=== PATIENT | female | born 1975 | race Caucasian/White ===

== ENCOUNTER 2021-07-04 22:58 | Emergency (ER) | payer SELFPAY ==
[2021-07-04 23:02] VITALS: BP 156/98; PULSE 88; RESP 18; TEMP 36.6; O2SAT 98
--- NOTE | 2021-07-04 23:06 | ECG_ITS ---
Measurements Intervals [place] Rate: 78 P: 26 CT: 167 QRS: -1 QRSD: 78 T: 18 QT: 389 QTc: 445 Interpretive Statements SINUS RHYTHM DELAYED PRECORDIAL R/S TRANSITION LOW QRS VOLTAGE IN PRECORDIAL LEADS VOLTAGE CRITERIA FOR LVH BASELINE ARTIFACT- V6 BORDERLINE ECG Electronically Signed On 07-05-2021 6:44:14 EQUIPMENT SUPERINTENDENT by Gennaro Stanton D.O.
[2021-07-04 23:48] LABS: Basophils Absolute Auto 0.1 K/mm3 (0.0-0.1); Basophils Percent Auto 0.6 % (0.2-1.2); Eosinophils Absolute Auto 0.3 K/mm3 (0-0.3); Eosinophils Percent Auto 2.9 % (0-4.4); Hematocrit 37.1 % (37.0-47.0); Hemoglobin 12.1 g/dL (12.0-15.0); Immature Granulocyte Absolute 0.07 K/mm3 (0.00-0.031); Immature Granulocyte Percent A 0.8 % (0-0.5); Lymphocytes Absolute Auto 2.75 K/mm3 (0.9-3.2); Lymphocytes Percent Auto 30.9 % (18.3-44.2); Mean Corpuscular HGB Conc 32.6 g/dl (32-36); Mean Corpuscular Hemoglobin 27.9 pg (26-34); Mean Corpuscular Volume 85.5 fl (80-100); Mean Platelet Volume 9.1 fl (7.4-10.4); Monocytes Absolute Auto 0.6 K/mm3 (0.1-0.6); Monocytes Percent Auto 6.4 % (2.6-8.5); Neutrophils Absolute Auto 5.2 K/mm3 (1.3-6.7); Neutrophils Percent Auto 58.4 % (45.5-73.1); Platelet Count Result 302 k/mm3 (150-375); Red Blood Count 4.34 M/mm3 (4.2-5.4); Red Cell Distribution Width 14.7 % (11.5-14.5); White Blood Count 8.9 K/mm3 (4.5-10.0)
[2021-07-04 23:53] VITALS: BP 142/95; PULSE 72; RESP 14; O2SAT 99
[2021-07-05] LABS: Alanine Aminotransferase 47 U/L (4-35); Albumin Level 4.4 g/dL (3.5-5.1); Alkaline Phosphatase 117 U/L (38-126); Anion Gap 6 mmol/L (8-16); Aspartate Amino Transferase 59 U/L (14-36); Bilirubin,Total 0.5 mg/dL (0.2-1.3); Blood Urea Nitrogen 13 mg/dL (7-17); Carbon Dioxide 30 mmol/L (22-30); Chloride 102 mmol/L (98-107); Estimated CRCL calculation 120 ml/min; Estimated Glomerular Filt Rate > 60; Glucose 135 mg/dL (65-110); Lipase 104 U/L (23-300); Potassium 3.8 mmol/L (3.4-5.0); Sodium 138 mmol/L (137-145)
[2021-07-05 00:01] LABS: INR 0.8; Prothrombin Time 11.5 Seconds (11.1-14.7)
[2021-07-05 00:02] LABS: Partial Thromboplastin Time 24.9 SECONDS (22.3-36.8)
[2021-07-05 00:10] LABS: Troponin I < 0.012 ng/mL (0.000-0.034)
[2021-07-05 00:57] LABS: Magnesium 1.8 mg/dL (1.6-2.3)
[2021-07-05 01:04] VITALS: BP 112/86; PULSE 71; RESP 15; O2SAT 97
[2021-07-05 01:40] LABS: Free T4 Free Thyroxine 1.14 ng/mL (0.78-2.19)
--- NOTE | 2021-07-05 01:41 | ED.ARRPALP ---
HPI - Arrhythmia/Palpitations General Chief Complaint: Arrhythmia/Palpitations Stated Complaint: palpitations Time Seen by Provider: 07/05/21 00:18 Source: patient Mode of arrival: ambulatory Limitations: no limitations History of Present Illness HPI narrative: 46-year-old female Here because of palpitations Patient notes several episodes of feeling like her heart was pounding commencing shortly after she got home from work this afternoon Nothing seems to trigger the episodes No prior history, no heart history, no history of thyroid issues or of hypoglycemia She does not use energy drinks takes 1 cup of coffee in the morning and no drugs Not associated with shortness of breath nausea diaphoresis With a strong thumbs feel uncomfortable but other than that there is no chest pain Related Data Allergies Allergy/AdvReac Type Severity Reaction Status Date / Time cefaclor Allergy Mild Swelling Verified 07/05/21 00:08 of Lip/Tongue/Throat Penicillins Allergy Mild Swelling Verified 07/05/21 00:08 of Lip/Tongue/Throat Review of Systems Review of Systems: All systems reviewed & are unremarkable except as noted in HPI and below Constitutional: Constitutional: Reports no additional constitutional complaints, Denies chills, Denies fever(s) and Denies headache(s) Eyes: Eyes: Reports no additional eye complaints and Denies change in vision ENT: Denies headache(s) and Denies sore throat Cardiovascular: Cardiovascular: Reports chest pain, Reports rapid heart rate and Denies dyspnea Respiratory: Respiratory: Denies cough and Denies dyspnea Gastrointestinal: Gastrointestinal: Denies abdominal pain, Denies diarrhea and Denies vomiting Genitourinary: Genitourinary: Denies urinary frequency and Denies dysuria Musculoskeletal: Musculoskeletal: Denies deformity, Denies arthralgias, Denies joint swelling and Denies numbness Integumentary/Breasts: Skin/Breast: Denies rash and Denies wounds Neurologic: Denies headache(s), Denies focal weakness and Denies numbness Psychiatric: Psychiatric: Reports no additional psychiatric complaints Endocrine: Endocrine: Reports no additional endocrine complaints Hematologic/Lymphatic: Hematologic/Lymphatic: Reports no additional hematologic/lymphatic complaints Allergic/Immunologic: Allergic/Immunologic: Reports no additional allergic/immunologic complaints Exam Const: General: cooperative, no acute distress and alert Nutritional Appearance: obese Orientation/consciousness: patient oriented x3 (alert) HENMT: Head: normal to inspection, normocephalic and atraumatic Ears: external ears normal General nose exam: no epistaxis Eyes: Conjunctivae: conjunctivae normal EOM: EOMs intact bilaterally Neck: Neck: normal visual inspection, supple and no JVD Resp: Effort & Inspection: normal respiratory effort and not labored Auscultation: clear to auscultation bilaterally, no rales, no rhonchi, no wheezes and other (BS =) Cardio: Rate: regular rate Rhythm: regular rhythm Heart sounds: no murmurs GI: GI Palp: Yes Soft to palpation and No Tenderness to palpation present (GI) Skin: General skin exam: normal color and no rashes or lesions noted Neuro: General: patient oriented x3 (alert) and moves all extremities Speech: normal speech Extrem: General: normal to inspection and no pedal edema Psych: Affect: normal affect Course Course Emergency Course: I did see 1 single PVC on the monitor while I was in the room Vital Signs Vital signs: Vital Signs Temperature 36.6 C 07/04/21 23:02 Pulse Rate 88 07/04/21 23:02 Respiratory Rate 18 07/04/21 23:02 Blood Pressure 156/98 H 07/04/21 23:02 Pulse Oximetry 98 07/04/21 23:02 Temperature 36.6 C 07/04/21 23:02 Pulse Rate 71 07/05/21 01:04 Respiratory Rate 15 07/05/21 01:04 Blood Pressure 112/86 07/05/21 01:04 Pulse Oximetry 97 07/05/21 01:04 MDM - Arrhythmia/Palpitations Lab Data
[2021-07-05 02:04] VITALS: BP 115/78; PULSE 71; RESP 16; O2SAT 98
== END 2021-07-05 02:04 | disposition home or self-care (01) ==
PROVIDERS: Emergency Medicine; Emergency Provider Emergency Medicine; PCP Family Medicine
DX: R00.2 Palpitations (principal); I49.3 Ventricular premature depolarization
CPT/HCPCS: 36415; 80053; 83690; 83735; 84439; 84443; 84484; 85025; 85610; 85730; 93005; 99284

== ENCOUNTER 2023-01-24 18:36 | Emergency (ER) | payer OTHER, SELFPAY ==
[2023-01-24] VITALS (15 sets, daily range): BP systolic 106–142; BP diastolic 54–68; PULSE 75–91; RESP 15–24; TEMP 36.5; O2SAT 95–99
--- NOTE | ~2023-01-24 | CT_ITS ---
EXAMINATION: CT abdomen pelvis w con DATE: 01/24/2023 20:09 INDICATION: LLQ abdominal pain TECHNIQUE: Computed tomography (CT) of the abdomen and pelvis was performed with 100 mL Omnipaque-350 intravenous contrast. Automated exposure control and iterative reconstruction technique were employe d. The dose-length product was 1610.67 mGy-cm. COMPARISON: 02/28/2019. FINDINGS: Lower thorax: Multiple stable pulmonary nodules. Liver: Normal. Biliary/Gallbladder: Gallbladder is absent. No bile duct dilation. Pancreas: No mass or duct dilation. Spleen: Normal. Adrenals:No mass. Kidneys: No mass, stone, or hydronephrosis. Dropped clips adjacent to the right kidney. GI tract: No small or large bowel dilation. Normal appendix. Mild diverticulosis without diverticulit is. Mesentery/Peritoneum: No ascites, mass, or free air. Retroperitoneum: No mass. Atherosclerotic abdominal aortic and/or arterial calcifications. Pelvis: 14.3 cm circumscribed simple left adnexal cyst, likely representing from the left ovary, exte nding into the lower abdomen.. Soft Tissues: Soft tissues and body wall unremarkable. Bones: No acute osseous finding. IMPRESSION: Hepatomegaly. Persistent large left ovarian cyst, now measuring 14.3 cm, which could be a source of l ower quadrant pain, consider gynecology referral for potential resection based on size and possible a ssociated symptoms. Otherwise, no acute abdominopelvic process detected. Reviewed, dictated and finalized at location [facility]. IMPRESSION: Hepatomegaly. Persistent large left ovarian cyst, now measuring 14.3 cm, which could be a source of lower quadrant pain, consider gynecology referral for pote ntial resection based on size and possible associated symptoms. Otherwise, no a cute abdominopelvic process detected.
--- NOTE | 2023-01-24 19:24 | ED.GENADULT ---
HPI - General Adult General Chief complaint: Abdominal Pain Stated complaint: Abdominal pain and chills Time Seen by Provider: 01/24/23 19:17 History of Present Illness HPI narrative: Patient 47-year-old female who presents the emergency department with chief complaint of abdominal pain. The patient reports that earlier today she started having severe cramping in the left side of her abdomen the patient states it was sharp but then became a cramping-like sensation patient states the pain has improved since she is arrived to the emergency department reports she had 2 bowel movements today and reports that she had some nausea. The patient denies fever denies dysuria reports that she has had a cholecystectomy and reports that she has had C-sections in the past. Patient reports no diarrhea reports no blood in her stool Related Data Allergies Allergy/AdvReac Type Severity Reaction Status Date / Time cefaclor Allergy Mild Swelling Verified 07/05/21 00:08 of Lip/Tongue/Throat Penicillins Allergy Mild Swelling Verified 07/05/21 00:08 of Lip/Tongue/Throat Review of Systems Review of Systems: A 10 system review of systems was completed on the patient and is negative except for what is stated in the HPI. Nursing and ancillary documentation was reviewed. Exam Narrative: GENERAL: Well-appearing, well-nourished, and in no acute distress. HEAD: Normocephalic, atraumatic. EYES: PERRLA and EOMI. ENT: Nares clear, no rhinorrhea or epistaxis. Mucous membranes moist. NECK: Supple. CHEST: Clear to auscultation. No respiratory distress. HEART: Regular rate and rhythm. No murmur heard. Normal peripheral pulses. ABDOMEN: Soft, tenderness to palpation in the left upper quadrant and left lower quadrant, nondistended, normal active bowel sounds. EXTREMITIES: Normal range of motion. No edema. SKIN: Warm, dry, no rash. NEURO: No focal deficits. Alert and oriented x3. PSYCH: Normal mood and affect. Course Vital Signs Vital signs: Vital Signs Temperature 36.5 C 01/24/23 18:39 Pulse Rate 91 01/24/23 18:39 Respiratory Rate 18 01/24/23 18:39 Blood Pressure 142/68 H 01/24/23 18:39 Pulse Oximetry 98 01/24/23 18:39 Oxygen Delivery Room Air 01/24/23 18:39 Temperature 36.5 C 01/24/23 18:39 Pulse Rate 77 01/24/23 20:39 Respiratory Rate 18 01/24/23 20:39 Blood Pressure 106/61 01/24/23 20:39 Pulse Oximetry 98 01/24/23 20:39 Oxygen Delivery Room Air 01/24/23 18:39 Medical Decision Making Vital Signs Vital Signs: Vital Signs Temperature 36.5 C 01/24/23 18:39 Pulse Rate 91 01/24/23 18:39 Respiratory Rate 18 01/24/23 18:39 Blood Pressure 142/68 H 01/24/23 18:39 Pulse Oximetry 98 01/24/23 18:39 Oxygen Delivery Room Air 01/24/23 18:39 Temperature 36.5 C 01/24/23 18:39 Pulse Rate 77 01/24/23 20:39 Respiratory Rate 18 01/24/23 20:39 Blood Pressure 106/61 01/24/23 20:39 Pulse Oximetry 98 01/24/23 20:39 Oxygen Delivery Room Air 01/24/23 18:39 Lab Data 01/24/23 19:12 01/24/23 19:12 Labs: Lab Results 01/24/23 Range/Units 19:12 WBC 16.6 H (4.5-10.0) K/mm3 RBC 4.30 (4.2-5.4) M/mm3 Hgb 11.2 L (12.0-15.0) g/dL Hct 35.7 L (37.0-47.0) % MCV 83.0 (80-100) fl MCH 26.0 (26-34) pg MCHC 31.4 L (32-36) g/dl RDW 15.8 H (11.5-14.5) % Plt Count 332 (150-375) k/mm3 MPV 9.3 (7.4-10.4) fl Immature Gran % (Auto) 1.6 H (0-0.5) % Neut % (Auto) 73.8 H (45.5-73.1) % Lymph % (Auto) 17.1 L (18.3-44.2) % [place] % (Auto) 6.3 (2.6-8.5) % Eos % (Auto) 0.8 (0-4.4) % Baso % (Auto) 0.4 (0.2-1.2) % Lymph # (Auto) 2.83 (0.9-3.2) K/mm3 [place] # (Auto) 1.1 H (0.1-0.6) K/mm3 Eos # (Auto) 0.1 (0-0.3) K/mm3 Baso # (Auto) 0.1 (0.0-0.1) K/mm3 Abs Immat Gran (auto) 0.27 H (0.00-0.031) K/mm3 Absolute Neuts (auto) 12.2 H (1.3-6.7) K/mm3 Absolute Nucleated RBC 0.0
[2023-01-24 19:31] LABS: Basophils Absolute Auto 0.1 K/mm3 (0.0-0.1); Basophils Percent Auto 0.4 % (0.2-1.2); Eosinophils Absolute Auto 0.1 K/mm3 (0-0.3); Eosinophils Percent Auto 0.8 % (0-4.4); Hematocrit 35.7 % (37.0-47.0); Hemoglobin 11.2 g/dL (12.0-15.0); Immature Granulocyte Absolute 0.27 K/mm3 (0.00-0.031); Immature Granulocyte Percent A 1.6 % (0-0.5); Lymphocytes Absolute Auto 2.83 K/mm3 (0.9-3.2); Lymphocytes Percent Auto 17.1 % (18.3-44.2); Mean Corpuscular HGB Conc 31.4 g/dl (32-36); Mean Platelet Volume 9.3 fl (7.4-10.4); Monocytes Absolute Auto 1.1 K/mm3 (0.1-0.6); Monocytes Percent Auto 6.3 % (2.6-8.5); Neutrophils Absolute Auto 12.2 K/mm3 (1.3-6.7); Neutrophils Percent Auto 73.8 % (45.5-73.1); Platelet Count Result 332 k/mm3 (150-375); Red Cell Distribution Width 15.8 % (11.5-14.5); White Blood Count 16.6 K/mm3 (4.5-10.0)
[2023-01-24 19:34] LABS: Appearance Urine Clear (Clear); Bacteria Urine None Seen /hpf; Bilirubin Urine Negative (Negative); Blood Urine Trace (Negative); Color Urine Yellow (Yellow); Glucose Urine UA Negative (Negative); Ketones Urine Negative (Negative); Leukocyte Esterase Ur Trace LEU/UL (Negative); Nitrate Urine Negative (Negative); Non Pathogenic Casts 0-2; Protein Urine Negative (Negative); Specific Grav Ur 1.022 (1.001-1.035); Squamous Epithelial Cell Urine Occasional /hpf (Few); WBC Urine 0-5 /hpf; pH Urine 6.5 (5.0-9.0)
[2023-01-24 19:45] LABS: Add Urine Microscopic? YES
[2023-01-24 19:47] LABS: Alanine Aminotransferase 32 U/L (6-35); Albumin Level 4.5 g/dL (3.5-5.1); Alkaline Phosphatase 105 U/L (38-126); Anion Gap 9 mmol/L (8-16); Aspartate Amino Transferase 40 U/L (14-36); Bilirubin,Total 0.6 mg/dL (0.2-1.3); Blood Urea Nitrogen 16 mg/dL (7-17); Carbon Dioxide 23 mmol/L (22-30); Chloride 103 mmol/L (98-107); Estimated CRCL calculation 119 ml/min; Estimated Glomerular Filt Rate > 60; Glucose 116 mg/dL (65-110); Lipase 82 U/L (23-300); Potassium 4.3 mmol/L (3.4-5.0); Sodium 135 mmol/L (137-145)
[2023-01-24] MEDS: ONDANSETRON INJ 4 MG/2 ML VIAL IV PUSH (19:54)
[2023-01-24] MEDS: SODIUM CHLORIDE 0.9% IV 1,000 ML 999 ML IV CONT (19:54)
[2023-01-24] MEDS: DICYCLOMINE HCL INJ 20 MG/2 ML VIAL IM (19:54)
== END 2023-01-24 21:52 | disposition home or self-care (01) ==
PROVIDERS: Emergency Medicine; Emergency Provider Emergency Medicine; PCP Family Medicine
DX: N83.202 Unspecified ovarian cyst, left side (principal); Z90.49 Acquired absence of other specified parts of digestive tract; R16.0 Hepatomegaly, not elsewhere classified
CPT/HCPCS: 36415; 74177; 80053; 81001; 81025; 83690; 85025; 96361; 96372; 96374; 99284; J0500; J2405; J7030; Q9967